=== PATIENT | female | born 2000 | race Caucasian/White ===

== ENCOUNTER 2021-12-03 14:28 | Outpatient (REF) | payer MEDICAID, SELFPAY | END 2021-12-03 14:29 | disposition home or self-care (01) | LOC: HO.LNP 14:28 | PROVIDERS: Visit Provider Obstetrics & Gynecology | DX: Z34.90 Encounter for supervision of normal pregnancy, unspecified, unspecified trimester (principal) | CPT/HCPCS: 36415; 76801; 76817; 84702; 87491; 87591; 99202 ==

== ENCOUNTER 2021-12-03 14:47 | Outpatient (REF) | payer MEDICAID, SELFPAY ==
--- NOTE | ~2021-12-03 | US_ITS ---
EXAMINATION: US OBSTETRICAL ULTRASOUND CLINICAL INFORMATION: Supervision of normal . COMPARISON: None. LMP: 10/31/2021. Gestational age by maternal dates is 5 weeks and 3 days. Estimated date of delivery by maternal dates is 08/07/2022. TECHNIQUE: Chain grayscale imaging of pelvis is performed. FINDINGS: There is a single intrauterine gestational sac with visible yolk sac. pole is not visualized. No heart rate seen. HR: Not seen. Gestational sac:0.85 cm (5 weeks 3 days +/- 4 days). MATERNAL ADNEXA: The right maternal ovary measures 3.5 x 2.3 x 2.6 cm. There is a corpus luteal cyst measuring 1.6 x 1.4 x 1.5 cm. The left maternal ovary measures 2.7 x 2.2 x 1.3 cm. There is a simple adnexal cyst measuring 0.9 x 0.6 x 0.5 cm. There is no significant maternal adnexal mass. No maternal pelvic ascites. US/US OB pelvic and transvaginal IMPRESSION: 1. Single intrauterine gestation and yolk sac are visualized. The gestational sac measurements correspond to ultrasound age of 5 weeks and 3 days. pole is not visualized. There is a corpus luteal cyst of the right ovary and a simple paraovarian cyst of the left adnexa.
[2021-12-03 16:39] LABS: HCG Quantitative 10431 mIU/mL
[2021-12-04 02:28] LABS: CT PCR NOT DETECTED (Not Detect.); NG PCR NOT DETECTED (Not Detect.)
== END 2021-12-03 14:48 | disposition home or self-care (01) ==
LOC: HO.US 14:47
PROVIDERS: Visit Provider Obstetrics & Gynecology
DX: Z34.91 Encounter for supervision of normal pregnancy, unspecified, first trimester (principal); Z3A.01 Less than 8 weeks gestation of pregnancy
CPT/HCPCS: 36415; 76801; 76817; 84702; 87491; 87591

== ENCOUNTER → 2021-12-04 10:24 | Outpatient (BNVA) | payer MEDICAID, SELFPAY | PROVIDERS: PCP Nurse Practitioner Family; Visit Provider Obstetrics & Gynecology | DX: Z34.91 Encounter for supervision of normal pregnancy, unspecified, first trimester (principal); Z3A.01 Less than 8 weeks gestation of pregnancy | CPT/HCPCS: 99212 ==

== ENCOUNTER 2024-02-28 15:08 | Outpatient (REF) | payer MEDICAID, SELFPAY ==
[2024-02-28 16:17] LABS: MANUAL DIFF FLAG NO
[2024-02-28 16:20] LABS: Basophils Percent Auto 0.5 % (0-2); Eosinophils Absolute Auto 0.1 X10*3/uL (0.0-0.4); Eosinophils Percent Auto 1.6 % (0-4); Hematocrit 38.2 % (37.0-47.0); Hemoglobin 13.3 g/dl (12.0-16.0); Imm Gran Abs Auto 0.03 X10*3/uL (0.00-0.03); Imm Gran Pct Auto 0.4 % (0.0-0.4); Lymphocytes Absolute Auto 1.9 X10*3/uL (1.2-4.9); Lymphocytes Percent Auto 22.9 % (20-40); Mean Corpuscular HGB Conc 34.8 g/dl (31.0-35.0); Mean Corpuscular Hemoglobin 30.1 pg (27.0-33.0); Mean Corpuscular Volume 86.4 fL (80.0-98.0); Mean Platelet Volume 10.1 fL (9.4-12.3); Monocytes Absolute Auto 0.5 X10*3/uL (0.1-1.2); Monocytes Percent Auto 6.4 % (2-11); Neutrophils Absolute Auto 5.6 x10*3/uL (2.0-8.3); Neutrophils Percent Auto 68.2 % (45-73); Platelet Count 326 X10*3/uL (160-400); Red Blood Count 4.42 X10*6/uL (4.20-5.50); Red Cell Distribution Width 12.3 % (11.0-16.0); White Blood Count 8.1 X10*3/uL (4.8-10.8)
[2024-02-28 16:40] LABS: Estimated Average Glucose 103 mg/dL; Hemoglobin A1C 115.8817 umol/L; Hemoglobin A1c % 5.2 % (<6.0); Total Hemoglobin (HGBA1C) 3521.1941 umol/L
[2024-02-28 17:10] LABS: Alanine Aminotransferase 30 U/L (0-31); Albumin Level 4.1 g/dL (3.5-5.0); Alkaline Phosphatase 76 U/L (39-117); Anion Gap 9 (12-20); Aspartate Amino Transferase 27 U/L (5-31); Bilirubin Total 0.3 mg/dL (0.0-1.0); Blood Urea Nitrogen 13 mg/dL (9-16); Calcium 9.2 mg/dL (8.4-10.2); Carbon Dioxide 25 mmol/L (22-29); Chloride 110 mmol/L (96-108); Estimated Glomerular Filt Rate > 60; Glucose Random 86 mg/dL (60-115); Sodium 140 mmol/L (135-145); Total Protein 7.9 g/dL (6.5-8.0)
[2024-02-28 17:22] LABS: TSH reflex Free T4 0.61 uIU/mL (0.32-4.0)
[2024-02-29 05:15] LABS: CT PCR DETECTED (Not Detect.); NG PCR NOT DETECTED (Not Detect.)
== END 2024-02-28 15:09 | disposition home or self-care (01) ==
LOC: HO.HHCL 15:08
PROVIDERS: Visit Provider Nurse Practitioner Family
DX: Z00.00 Encounter for general adult medical examination without abnormal findings (principal); N92.6 Irregular menstruation, unspecified
CPT/HCPCS: 36415; 80053; 83036; 84443; 85025; 87491; 87591

== ENCOUNTER 2024-06-28 01:45 | Emergency (ER) | payer MEDICAID, SELFPAY ==
[2024-06-28 01:48] VITALS: BP 133/64; PULSE 77; RESP 20; TEMP 36.9; O2SAT 99; BMI 31.3
--- NOTE | 2024-06-28 03:25 | ED_ITS ---
HPI - General Adult General Chief complaint: Eye Problems Stated complaint: pink eye Time Seen by Provider: 06/28/24 02:40 Source: patient Limitations: no limitations History of Present Illness ED Provider: Nona Palencia PA-C HPI narrative: 24-year-old female presents with left eye discharge x3 days. Patient states she has been waking in the morning with a crusted dry discharge. The eye itself is red, with the excessive tearing and burning sensation. No recent cough or cold symptoms no fever, no sick contacts with similar symptoms. The patient was not diabetic, she does not wear contact lenses. Related Data Previous Rx's ?Medication ?Instructions ?Recorded erythromycin 5 mg/gram (0.5 %) eye 0.5 inch ophthalmic-Left QID #3.5 06/28/24 ointment grams Allergies Allergy/AdvReac Type Severity Reaction Status Date / Time No Known Allergies Allergy Verified 06/28/24 01:49 Review of Systems Review of Systems: Yes all other systems are reviewed and are negative Constitutional: Constitutional: Denies fatigue and Denies fever(s) Eyes: Eyes: Reports eye discharge, Reports irritation, Reports itchy eyes and Reports eye pain ENT: Denies nasal congestion Respiratory: Respiratory: Denies cough Endocrine: Endocrine: Denies fatigue Allergic/Immunologic: Allergic/Immunologic: Reports itchy eyes PMFSH Past Medical History Attestation statement: The following information was validated with the patient. 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 Sexual orientation: Straight/Heterosexual Gender identity: Female Physical Exam ED Vital Signs: Vital Signs - 24 hr 06/28/24 01:48 Temperature 98.5 F Pulse Rate 77 Respiratory Rate 20 Blood Pressure 133/64 Pulse Oximetry 99 Oxygen Delivery Method Room Air BMI result Body Mass Index 31.3 Const Other: Alert Orientation/consciousness: patient oriented x3 Eyes Other: Left eye with a residual crusted discharge along lashes of lower lid, bulbar conjunctiva injected Resp Effort & Inspection: normal respiratory effort Cardio Other: Normal peripheral perfusion Skin Other: Warm dry no rash Neuro General: patient oriented x3, gait normal, no focal motor deficits and CN's II- XI intact bilaterally Psych Other: Cooperative Medical Decision Making Medical Decision Making MDM Narrative: 24-year-old female presents with left eye discharge x3 days. Patient states she has been waking in the morning with a crusted dry discharge. The eye itself is red, with the excessive tearing and burning sensation. No recent cough or cold symptoms no fever, no sick contacts with similar symptoms. The patient was not diabetic, she does not wear contact lenses. No chronic issues History: Per patient I have considered the following differential diagnoses: Corneal abrasion, corneal ulceration, conjunctivitis Plan: Patient has conjunctivitis, she has no risk factors for Pseudomonas, we will treat with the erythromycin. There was no trauma to the eye, I have no suspicion for ulceration or abrasion. Discharge Plan Discharge Clinical Impression: Acute conjunctivitis, left eye Patient Disposition: Home, Self-Care Instructions: Conjunctivitis (ED) Additional Instructions: You have conjunctivitis. See home care instructions. You can use [id number] artificial tears to help lubricate the eye in between your dosing of the erythromycin. Use the eye ointment as directed. For your allergies, you can use [id number] Zyrtec or Claritin, daily, throughout the allergy season. Follow up with your primary care provider as needed. Prescriptions: New erythromycin 5 mg/gram (0.5 %) ointment 0.5 inch ophthalmic-Left QID Qty: 3.5 0RF Stand Alone Forms: Work/School Release Print Language: Nepali
[2024-06-28] MEDS: Erythromycin Base 0.5% Oph Oin 1 GM TUBE 1 CM EYE-LEFT (03:54)
[2024-06-28 04:00] VITALS: BP 133/64; PULSE 77; RESP 20; TEMP 36.9; O2SAT 99
[2024-06-28 04:08] VITALS: BP 133/64; PULSE 77; RESP 20; TEMP 36.9; O2SAT 99
== END 2024-06-28 04:09 | disposition home or self-care (01) ==
PROVIDERS: Emergency Provider Emergency Medicine Emergency Medical Services
DX: H10.32 Unspecified acute conjunctivitis, left eye (principal)
CPT/HCPCS: 99283; 99284

== ENCOUNTER 2024-11-15 11:25 | Outpatient (REF) | payer OTHER, SELFPAY ==
--- OUTSIDE RECORDS SUMMARY | 2024-11-15 10:30 | XMS_ITS | Encounter Summary ---
Author Organization [employer] Address [address] [place] [address] [address] [place] [address] Care Team Providers Care Account Development Representative Name Role Phone Felicia Loaiza NP Primary Care Provider [phone] Reason for Visit * Reason Comments Follow-up Encounter Details Date Type Department Care Team (Latest Contact Info) Description 11/15/2024 10:30 AM EDT Office Visit [facility] [address] [place] [address] Feliica Loaiza NP [address] [place] [address] Prediabetes (Primary Dx); Dietary counseling; Exercise counseling; Oral contraceptive causing adverse effect in therapeutic use, initial encounter; Possible exposure to STI Social History Tobacco Use Types Packs/Day Years Used Date Smoking Tobacco: Some Days Cigarettes Passive Smoke Exposure: Current Smokeless Tobacco: Never Tobacco Cessation:Ready to Q uit: Not Asked; Counseling Given: Not Answered Alcohol Use Standard Drinks/Week Comments Never 0 (1 standard drink = 0.6 oz pur e alcohol) Depression Answer Date Recorded Patient Health Questionnaire-9 Score 0 11/15/2024 Patient Health Questionnaire-9 Score 0 11/15/2024 Last PHQ-9: Questionnaire Data Not on file 0 11/15/2024 Housing Stability Answer Date Recorded What is your housing situation today? I have nola coley 02/17/[address] you li ve. Do you have problems with any of the following? None of the above 02/17/2024 Food Insecurity Answer Date Recorded Within the past 12 months, y ou worried that your food would run out before you got money to buy more: Never True 02/17/2024 Within the past 12 months,th e food you bought just didn't last and you didn't have enough money to get more: Never True Transportation Answer Date Recorded In the past 12 months, has l ack of transportation kept you from medical appts, meetings, work or from getting things needed for daily living? No 02/17/2024 Utilities Answer Date Recorded In the past 12 months, has t he electric, gas, oil or water company threatened to shut off services in your home? No 02/17/2024 Depression Answer Date Recorded Patient Health Questionnaire-2 Score 0 11/15/2024 Internet Access Answer Date Recorded Internet Access Q1 Yes 02/17/2024 Internet Access Q2 Not on file 02/17/2024 Comments Unknown Sex and Gender Information Value Date Recorded Sex Assigned at Female 12/29/2021 10:36 AM EDT Legal Sex Female 10:36 AM EDT Gender Identity Female 12/29/2021 10:36 AM EDT Sexual Orientation Straight 12/29/2021 10 :36 AM EDT documented as of this encounter Last Filed Vital Signs Vital Sign Reading Time Taken Comments Blood Pressure 115/69 11/15/2024 10:35 AM EDT Pulse 58 11/15/2024 10:35 AM EDT Temperature 36.7 C (98.1 F) 11/15/2024 10:35 AM EDT Respiratory Rate 17 11/15/2024 10:35 AM EDT Oxygen Saturation 98% 11/15/2024 10:35 AM EDT Inhaled Oxygen Concentration - - Weight 98.6 kg (217 lb 6.4 oz) 11/15/2024 10:35 AM EDT Height 170.2 cm (5' 7 ) 11/15/2024 10:35 AM EDT Body Mass Index 34.05 11/15/2024 10:35 AM EDT documented in this encounter Functional Status * Over the past 2 weeks, how often have you been bothered by any of the following problems? Question Answer Date of Assessment Author Patient Health Questionnaire -2 Score 0 11/15/2024 10:44 AM EDT Karyn Menendez MA * Little interest or pleasure in doing things Answer Date of Assessment Author Not at all 11/15/2024 10:44 AM EDKaryn Purvis MA * Feeling down, depressed, or hopeless Answer Date of Assessment Author Not at all 11/15/2024 10:44 AM Karyn Ramos MA * Trouble falling or staying asleep, or sleeping too much Answer Date of Assessment Author Not at all 11/15/2024 10:44 AM Karyn Ramos MA * Feeling tired or having little energy Answer Date of Assessment Author Not at all 11/15/2024 10:44 AM EDKaryn Purvis MA * Poor appetite or overeating Answer Date of Assessment Author Not at all 11/15/2024 10:44 AM Karyn Ramos MA * Feeling bad about yourself - or that you are a failure or have let yourself or your family down Answer Date of Assessment Author Not at all 11/15/2024 10:44 AM Karyn Ramos MA * Trouble concentrating on things, such as reading the newspaper or watching television Answer Date of Assessment Author Not at all 11/15/2024 10:44 AM Karyn Ramos MA * Moving or speaking so slowly that other people could have noticed? Or the opposite - being so fidgety or restless that you have been moving around a lot more than usual. Answer Date of Assessment Author Not at all 11/15/2024 10:44 AM Karyn Ramos MA * Thoughts that you would be better off or hurting yourself in some way Answer Date of Assessment Author Not at all 11/15/2024 10:44 AM Karyn Ramos MA * Patient Health Questionnaire-9 Score Answer Date of Assessment Author 0 11/15/2024 10:44 AM Karyn Ramos MA documented as of this encounter Miscellaneous Notes * Assessment & Plan Note - Felicia Loaiza NP - 11/15/2024 10:30 AM EDTAssociated Problem(s): Dietary counseling * Assessment & Plan Note - Felicia Loaiza NP - 11/15/2024 10:30 AM EDTAssociated Problem(s): Exercise counseling * Assessment & Plan Note - Felicia Loaiza NP - 11/15/2024 10:30 AM EDTAssociated Problem(s): Prediabetes Orders: Comprehensive Metabolic Panel; Future Hemoglobin A1c; Future * Assessment & Plan Note - Felicia Loaiza NP - 11/15/2024 10:30 AM EDTAssociated Problem(s): Oral contraceptives causing adverse effect in therapeutic use documented in this encounter Plan of Treatment Scheduled Orders Name Type Priority Associated Diagnoses Orde r Schedule Comprehensive Metabolic Panel Lab Routine Prediabetes Expected: 11/15/2024 (Approximate), Expires: 11/15/2025 Hemoglobin A1c Lab Routine Prediabetes Expected: 11/15/2024 (Approximate), Expires: 11/15/2025 HIV-1/2 Antigen and Antibodies, Fourth Generation, with Reflexes Lab Routine Possible exposure to STI Expected: 11/15/2024 (Approximate), Expires: 11/15/2025 Hepatitis C Antibody with Reflex to HCV, RNA, Quantitative, Real-Time PCR Lab Routine Possible exposure to STI Expected: 11/15/2024, Expires: 11/15/2025 RPR (Monitor) with Reflex to Titer Lab Routine Possible exposure to STI Expected: 11/15/2024, Expires: 11/15/2025 Chlamydia/N. Gonorrhoeae, PCR, Urine Lab Routine Possible exposure to STI Ordered: 11/15/2024 documented as of this encounter Procedures Procedure Name Priority Date/Time Associated Diagnosis Comments POCT , URINE Routine 11/15/2024 11:27 AM EDT Oral contraceptive causing adverse effect in therapeutic use, initial encounter documented in this encounter Results * POCT Urine (11/15/2024 11:27 AM EDT) Preg Test, Ur Negative Negative, Indeterminate, None Detected, Invalid, Specimen unsatisfactory for evaluation, Weakly Positive, 2+ QC Media Lot # [id number] Lot# Expiration Date QC TEST Urine 11/15/2024 11:2 7 AM EDT Felicia Loaiza NP POINT OF CARE TEST ENTER/EDIT OR DERABLES Final Result documented in this encounter Visit Diagnoses Diagnosis Prediabetes- Primary Other abnormal glucose Dietary counseling Dietary surveillance and counseling Exercise counseling Oral contraceptive causing adverse effect in therapeutic use, initial encounter Possible exposure to STI documented in this encounter Additional Health Concerns Assessment Noted Time PHQ-9 Depression Total Score: 0 11/16/19 25 10:44 AM EDT documented as of this encounter Care Teams Account Development Representative Relationship Specialty Start Date End Date Felicia Loaiza NP [address] [place] [id number] PCP - General Family Medicine 04/05/23 documented as of this encounter
--- OUTSIDE RECORDS SUMMARY | 2024-11-15 14:49 | XMS_ITS | Clinical Summary ---
Author Organization [facility] Address [address] [place] [address] 7 [place] [address] Care Team Providers Care Television Newscast Director Name Role Phone Felicia Loaiza NP Primary Care Provider Allergies No known active allergies Medications olopatadine (Pataday) 0.2 % ophthalmic solutionIndication s:Allergic conjunctivitis of both eyes Administer 1 drop into affected eye(s) Once per day. 2.5 mL 2 4 Active cetirizine (ZyrTEC) 10 MG tablet TAKE 1 TABLET BY MOUTH EVERY DAY 90 tablet 4 Active fluticasone (Flonase) 50 MCG/ACT nasal sprayIndications:S easonal allergic rhinitis due to pollen INSTILL 1-2 SPRAYS INTO EACH NOSTRIL DAILY 16 g 2 5 Active desogestrel-ethiny l estradiol (Apri) 0.15-30 MG-MCG tablet Take 1 tablet by mouth Once per day. 28 tablet 2 5 026 Active Active Problems Problem Noted Date Diagnosed Date Prediabetes 11/15/2024 Assessment & Plan (11/15/2024 11:15 AM EDT): Orders: Comprehensive Metabolic Panel; Future Hemoglobin A1c; Future Oral contraceptives causing adverse effect in therapeutic use 11/15/2024 Assessment & Plan (11/15/2024 11:15 AM EDT): Cervical cancer screening 04/23/2024 Dietary counseling 02/29/2024 Assessment & Plan (11/15/2024 11:15 AM EDT): Assessment & Plan (02/29/2024 9:26 AM EST): Encouraged minimizing processed foods and increasing whole foods particularly vegetables Exercise counseling 02/29/2024 Assessment & Plan (11/15/2024 11:15 AM EDT): Assessment & Plan (02/29/2024 9:26 AM EST): Encouraged daily movement, working up to 30 minutes daily Healthcare maintenance 02/28/2024 Assessment & Plan (02/29/2024 9:26 AM EST): Metabolic labs ordered Follow up in 2 months for pap Urticaria 02/28/2024 Assessment & Plan (02/29/2024 9:25 AM EST): Trial zyrtec Seasonal allergic rhinitis due to pollen 024 Snoring 02/28/2024 Assessment & Plan (02/29/2024 9:24 AM EST): Trial flonase, if no improvement in symptoms referral to sleep meidcine Follow up in 2 months Migraine with aura 12/27/2022 12/27/2022 Vitamin D deficiency 12/27/2022 12/27/2022 Chronic low back pain 12/27/2022 12/27/2022 Irregular menstrual cycle 11/17/20222022 Overview (12/27/2022): Last Assessment & Plan: Patient reports occasional months where she gets her period 2-3 weeks after her previous menses Last menstrual period 10/21 Patient not currently tracking her cycles Patient not currently using hormonal contraception Plan for patient to keep a menstrual journal for cycle tracking Follow up in 3 months at annual [employer] exam Assessment & Plan (02/29/2024 9:25 AM EST): Pt declines ocps today, is tracking menses Tsh and cbc ordered today control counseling 12/22/2021 Status post therapeutic 12/22/2021 Resolved Problems Problem Noted Date Diagnosed Date Resolved Date Allergic conjunctivitis of both eyes 02/28/2024 06/08/2024 Assessment & Plan (02/29/2024 9:25 AM EST): Topical eye drops rx today Reduced visual acuity 12/27/2022 12/27/20222024 Encounters Date Type Department Care Team Description 11/15/2024 10:30 AM EDT Office Visit [facility] [address] [place] [phone] Felicia Loaiza, CARISSA Prediabetes (Primary Dx); Dietary counseling; Exercise counseling; Oral contraceptive causing adverse effect in therapeutic use, initial encounter; Possible exposure to STI 11/15/2024 Travel 11/09/2024 Travel 11/09/2024 Telephone [facility] [address] [place] [address] Felicia Loaiza, CARISSA Chart Prep 11/09/2024 Telephone [facility] [address] [place] [address] Felicia Loaiza, CARISSA Chart Prep 11/07/2024 Travel 11/07/2024 Telephone [facility] [address] [place] [phone] Felicia Loaiza NP Nurse Triage 11/02/2024 3:30 PM EDT Office Visit [facility] [address] [place] [address] Tarka, Rin, OD Retinal hemorrhage of right eye (Primary Dx); Dry eyes 11/02/2024 Travel 09/28/2024 1:00 PM EDT Office Visit [facility] [address] [place] [address] Mago Rivera DO Nausea and vomiting, unspecified vomiting type (Primary Dx); Insulin resistance 09/28/2024 Travel from Last 3 Months Immunizations Immunization Administration Dates Next Due Influenza injectable quadriv alent preservative free 05/05/2019 Meningococcal MCV4P [id number]-135 05/05/2019 Moderna Covid-19 Vaccine 12+ 09/09/2021,07/30/19 21,06/30/2020 Tdap 05/05/2019 Social History Tobacco Use Types Packs/Day Years [...] Orientation Straight 12/29/2021 10 :36 AM EDT Last Filed Vital Signs Vital Sign Reading [...] Mass Index 34.05 11/15/2024 10:35 AM EDT Plan of Treatment Health Maintenance Due Date Last Done Comments HIV Screening 2001 Lipid Panel 2001 Family Planning (PISQ) 2016 HPV Vaccines (1 - 3-dose series) 2016 Meningococcal B Vaccine (1 of 2 - Standard) 2017 Hepatitis B Vaccines (1 of 3 - 19+ 3-dose series) 2020 Pneumococcal Vaccine: Pediatrics (0 to 5 Years) and At-Risk Patients (6 to 49) Years (1 of 2 - PCV) 2020 Pap Smear 2022 COVID-19 Vaccine ( season) 2024 09/09/2021, 07/29/2020, 06/30/2020 Influenza Vaccine (#1) 2024 05/05/2019 SDOH Screening 02/16/2025 02/17/2024 Diabetes: Hemoglobin A1C 02/27/202502/27/ 024, 04/15/2021, 05/05/2019 Chlamydia and Gonorrhea Screening 05/11/2025 05/11/2024, 02/28/2024, 12/05/2021, Additional history exists Disability Screening 11/09/2025 11/09/2024 Alcohol/Substance Use Screening 11/15/2025 11/15/2024 Depression Screening 11/15/2025 11/15/2024, 11/16/19 25 Tobacco Screening 11/15/2025 11/15/2024 DTaP/Tdap/Td Vaccines (2 - Td or Tdap) 05/04/2029 05/05/2019 Zoster Vaccines (1 of 2) 2051 RSV Patients and Patients Aged 60 years or older (1 - 1-dose 75+ series) 2076 Meningococcal Vaccine Completed 05/05/2019 Hepatitis C Screening Completed 04/15/2021 HIB Vaccines Aged Out No longer eligi ble based on patient's age to complete this topic Hepatitis A Vaccines Aged Out No long er eligible based on patient's age to complete this topic IPV Vaccines Aged Out No longer eligi ble based on patient's age to complete this topic RSV under 20 months Aged Out No longe r eligible based on patient's age to complete this topic Rotavirus Vaccines Aged Out No longer eligible based on patient's age to complete this topic Procedures Procedure Name Priority Date/Time Associated Diagnosis Comments POCT , URINE Routine 11/15/2024 11:27 AM EDT Oral contraceptive causing adverse effect in therapeutic use, initial encounter CHLAMYDIA/N. GONORRHOEAE RNA, TMA, UROGENITAL Routine 02/28/2024 3:21 PM EST Irregular menstrual cycle HEMOGLOBIN A1C Routine 02/28/2024 3:10 PM EST Healthcare maintenance ZZZ HISTORICAL HEPATITIS C AB W/REFL TO HCV RNA, QN, PCR Routine 04/15/2021 11:32 AM EST from Last 3 Months or Most Recently Relevant to Health Maintenance Results * POCT Urine (11/15/2024 11:27 AM EDT) Preg Test, Ur Negative Negative, Indeterminate, None Detected, Invalid, Specimen unsatisfactory for evaluation, Weakly Positive, 2+ QC Media Lot # [id number] Lot# Expiration Date QC TEST Urine 11/15/2024 11:2 7 AM EDT Felicia Loaiza NP POINT OF CARE TEST ENTER/EDIT OR DERABLES Final Result * (ABNORMAL) Chlamydia/N. Gonorrhoeae RNA, TMA, Urogenitial (02/28/2024 3:21 PM EST) CT PCR DETECTED(A) Not Detect. [facility] Comment:Detected results may be observed after successful antibiotictreatment due to target nucleic acids from residualnon-viable chlamydia. As with many diagnostic tests, resultsfrom the Xpert CT/NG assay should be interpreted inconjunction with other laboratory and clinical dataavailable to the clinician.Xpert CT/NG performance has not been evaluated in patientsless than 14 years of age. The assay should not be used forthe evaluationof suspected sexual abuse or for other medico- legalindications. Additional testing is recommended inany circumstance when false positive or false negativeresults could lead to adverse medical, social orpsychological consequences.These results must be reported by the ordering clinician orclinical facility to the [facility] required by state law. NG PCR NOT DETECTED Not Detect. [facility] Comment:A not detected test result does not exclude the possibilityof infection because test results can be affected byimproper specimen collection, concurrent antibiotic therapy,or the number of organisms in the specimen which may bebelow the sensitivity of the test. As with many diagnostictests, results from the Xpert CT/NG assay should beinterpreted in conjunction with other laboratory andclinical data available to the clinician.Xpert CT/NG performance has not been evaluated in patientsless than 14 years of age. The assay should not be used forthe evaluationof suspected sexual abuse or for other medico-legalindications. Additional testing is recommended in anycircumstance when false positive or false negative resultscould lead to adverse medical, social or psychologicalconsequences. Urine (Urine, Random) 02/28/2024 3:21 PM EST 02/28/2024 5:42 PM EST Narrative [facility] - 02/29/2024 5:15 AM EST Urine us Felicia Loaiza NP LAB MICROBIOLOGY - GENERAL ORDER SEGUN Final Result [facility] [address] [place] [address] [phone] * Hemoglobin A1c (02/28/2024 3:10 PM EST) Hemoglobin A1c 5.2 <6.0 % [facility] Comment:Hemoglobin A1C Refer ence Range Adults: 4.8 - 6.0 % Non diabetic: < 6.0 % Goal: < 7.0 %Additional Action Suggested: > 8.0 %Note: Hemoglobin A1c results are invalid for patients with abnormal amounts of HbF. Blood transfusions may impact the HbA1c concentration in the patient sample. Estimated Average Glucose 103 mg/dL [facility] Comment:eAG = Estimated ave rage glucose which is %A1C expressed asaverage glucose, using the formula of the V4O-YzyzvsvClqifrm Glucose study (ADAG), Diabetes Care, Vol.31,#8,Sep. 2007 Blood Venous blood specimen / Unknown 02/28/2024 3:10 PM EST 02/28/2024 4:13 PM EST us Felicia Loaiza BLADE CHANGER LAB BLOOD ORDERABLES Final Resul t Performing Organization Address [facility] Co de Phone Number [facility] [address] [place] [address] [phone] * HEPATITIS C AB W/REFL TO HCV RNA, QN, PCR (04/15/2021 11:32 AM EST) HEPATITIS C ANTIBODY NON-REACT [facility] NON-REACT [facility] INDEX 0.02 <1.00 [facility] Comment: HCV antibody was non-reactive. There is no laboratory evidence of HCV infection. In most cases, no further action is required. However, if recent HCV exposure is suspected, a test for HCV RNA (test code 33173) is suggested. For additional information please refer to http://education.[employer].Perk/faq/IJJ07x8 (This link is being provided for informational/ educational purposes only.) 04/15/2021 11:3 2 AM EST us Rose MOYERP HISTORICAL/NON ORDERABLE LABS Final Result Performing Organization Address City/[facility]/ZIP Co de Phone Number [facility] [address] [place] [address], from Last 3 Months or Most Recently Relevant to Health Maintenance Insurance HSN PARTIAL Care Teams Television Newscast Director Relationship Specialty Start Date End Date Felicia Loaiza NP [address] [place] [phone] PCP - General Family Medicine 04/05/23
--- OUTSIDE RECORDS SUMMARY | 2024-11-15 14:49 | XMS_ITS | Clinical Summary ---
Author Organization [facility] Address [address] [place] [phone] Phone Care Team Providers Care Med Admin Name Role Phone [facility] Primary Care Provider Unavailable Allergies No known active allergies Medications fluticasone propionate (FLONASE) 50 mcg/actuation nasal spray 1-2 sprays. 02/28/2024 Active Active Problems Problem Noted Date Diagnosed Date Irregular menstrual cycle 11/17/2022 Assessment & Plan (11/17/2022 12:58 PM EDT): Patient reports occasional months where she gets her period 2-3 weeks after her previous menses Last menstrual period 10/21 Patient not currently tracking her cycles Patient not currently using hormonal contraception Plan for patient to keep a menstrual journal for cycle tracking Follow up in 3 months at annual [employer] exam Status post therapeutic 12/22/2021 Assessment & Plan (12/22/2021 10:14 PM EDT): Gricel presents to follow up after TAB. She took medications as prescribed and had a period of heavy bleeding and cramping followed by 2 weeks of moderate bleeding which has just tapered down and she feels like bleeding has finally resolved. Gricel is doing ok. O: US today shows no GS or retained products in uterus A: S/P Completed TAB P: Discussed options for contraception. After discussing R/B of different options - Gricel would like to try the Depo shot. She understands there may be a possibility of weight gain - we reviewed side effect profiles of other options, but ultimately she would like to choose the Depo shot. Recommended that she should wait 1 week after Depo initiation to be sexually active without a back up method Recommended follow up in 3 months for repeat Depo shot and Annual Fine Unha[employer]r control counseling 12/22/2021 Assessment & Plan (12/22/2021 10:14 PM EDT): Discussed options and Gricel opted for Depo Shot Family History Medical History Relation Comments No Known Problems Father Diabetes Mother Relation Status Comments Brother Alive Father Alive Maternal Grandfather Alive Maternal Grandmother Mother Alive Paternal Grandfather Paternal Grandmother Alive Social History Tobacco Use Types Packs/Day Years Used Date Smoking Tobacco: Former Cigarettes Smokeless Tobacco: Never Tobacco Cessation:Counseling Given: Not Answered Alcohol Use Standard Drinks/Week Comments Not Currently 0 (1 standard drink = 0.6 oz pur e alcohol) Education Answer Date Recorded Are you interested in more education? Not on maria e 06/27/2022 Are you concerned about learning? Not on file 06/27/2022 No 06/27/2022 No 06/27/2022 Digital Access Answer Date Recorded No 07/28/2022 No 07/28/2022 Reliable internet access at home? Not on file 07/28/2022 Device with a working camera? Not on file Intimate Partner Violence Answer Date R ecorded Are you denied basic needs s uch as food, clothing, or medical care? No 07/06/2023 In the past 12 months have y ou been in a relationship with a person who hurts, threatens, or tries to control you? No 07/06/2023 Are you denied basic needs s uch as food, clothing, or medical care? No 07/06/2023 In the past 12 months have y ou been in a relationship with a person who hurts, threatens, or tries to control you? No 07/06/2023 Comments No Sex and Gender Information Value Date Recorded Sex Assigned at Female 11/27/2021 10:27 AM EDT Legal Sex Female 12:27 PM EDT Gender Identity Female 11/27/2021 10:27 AM EDT Sexual Orientation Straight 07/07/2023 1: 57 AM EDT Last Filed Vital Signs Vital Sign Reading Time Taken Comments Blood Pressure 126/82 06/01/2024 11:29 AM EDT Pulse 80 07/07/2023 3:01 AM EDT Temperature 36.6 C (97.9 F) 07/07/2023 3:01 AM EDT Respiratory Rate 18 07/07/2023 3:01 AM EDT Oxygen Saturation 99% 07/07/2023 3:01 AM EDT Inhaled Oxygen Concentration - - Weight 95.7 kg (211 lb) 05/11/2024 3:37 PM EDT Height 167.6 cm (5' 6 ) 12/18/2022 12:55 PM EDT Body Mass Index 34.06 12/18/2022 12:55 PM EDT Plan of Treatment Health Maintenance Due Date Last Done Comments DEPRESSION SCREENING 2013 SMOKING Hx and SMOKELESS TOBACCO SCREENING 2014 HPV VACCINES (1 - 3-dose series) 2016 MENINGOCOCCAL VACCINES (B) ( 1 of 2 - Standard) 2017 HEPATITIS C SCREENING 2019 HIV ONE-TIME SCREENING (18-6 5 YEARS) 2019 PAP SMEAR 2022 INFLUENZA VACCINE (#1) 2024 05/05/2019 COVID-19 VACCINE ( - 2024-2 6 season) 2024 09/09/2021, 07/29/2020, 06/30/2020 CHLAMYDIA SCREENING 05/11/2025 05/11/2024, 12/05/2021 Adult Td,Tdap Booster 05/04/2029 05/05/2019 MENINGOCOCCAL VACCINES (ACWY) Completed 05/05/2019 HEPATITIS A VACCINES Aged Out No long er eligible based on patient's age to complete this topic HIB VACCINES Aged Out No longer eligi ble based on patient's age to complete this topic PNEUMOCOCCAL VACCINES (0-49 years) Aged Out No longer eligible b ased on patient's age to complete this topic Medical Devices Not on file Procedures Procedure Name Priority Date/Time Associated Diagnosis Comments CHLAMYDIA TRACHOMATIS AND NEISSERIA GONORRHOEAE NUCLEIC ACID DETECTION Routine 05/11/2024 4:10 PM EDT Screen for sexually transmitted diseases from Last 3 Months or Most Recently Relevant to Health Maintenance Results * Chlamydia trachomatis and Neisseria gonorrhoeae Nucleic Acid Amplification (05/11/2024 4:10 PM EDT) CHLAMYDIA TRACHOMATIS Not Detected Not Detected [facility] NEISERIA GONORRHOEAE Not Detected Not Detected [facility] SPECIMEN TYPE URINE [facility] Urine (Urine) 05/11/2024 4:1 0 PM EDT 05/11/2024 8:17 PM EDT Yue Horowitz CNM NON CULTURE MICROBIOLOGY Final R esult [facility] [address] [place] [address] from Last 3 Months or Most Recently Relevant to Health Maintenance Insurance [employer] PARTIAL Member Subscriber Plan / Payer (Ef fective 2024-Present) Name:Gricel Johns Relation to Subscriber:Self Name:Gricel Johns Payer ID:Not on file Group ID:Not on file Type:Medicaid Address: [address] [facility]CP [facility] Address: [facility] [address] [place] [address] [employer]AF[employer] NET PARTIAL Member Subscriber Plan / Payer (Ef fective 2024-Present) Name:Gricel Johns Relation to Subscriber:Self Name:Gricel Johns Payer ID:Not on file Group ID:Not on file Type:Medicaid [address] PCP [facility] [employer] SAF[employer] NET PARTIAL ENSE NON NSPG PCP [facility] HEALTH SAFETY NET PARTIAL WELLSENSE NON NSPG PCP S[facility] NET PARTIAL WELLSENSE NON NSPG PCP [facility] HEALTH SAFETY NET PARTIAL NON NSPG PCP [facility] Care Teams Med Admin Relationship Specialty Start Date End Date Devi Jurado MD PCP - General 11/24/21 Additional Source Comments The information contained in this document represents components of the legal health record. It is not the complete legal health record.[facility]
--- OUTSIDE RECORDS SUMMARY | 2024-11-15 14:49 | XMS_ITS | Encounter Summary ---
Author Organization [facility] Address [address] [facility] [address] [place] [address] Care Team Providers Care Track Laborer Name Role Phone Felicia Loaiza NP Primary Care Provider [phone] Encounter Details Date Type Department Care Team (Latest Contact Info) Description 11/15/2024 Travel Social History Tobacco Use Types Packs/Day Years Used Date Smoking Tobacco: Some Days Cigarettes Passive Smoke Exposure: Current Smokeless Tobacco: Never Alcohol Use Standard Drinks/Week Comments Never 0 [...] AM EDT documented as of this encounter Functional Status * Over the past 2 weeks, how often have you been bothered by any of the following problems? Question Answer Date of Assessment Author Patient Health Questionnaire -2 Score 0 11/15/2024 10:44 AM Karyn Ramos MA * Little interest or pleasure in doing things Answer Date of Assessment Author Not at all 11/15/2024 10:44 AM Karyn Ramos MA * Feeling down, depressed, or hopeless [...] 11/15/2024 10:44 AM Karyn Ramos MA * Poor appetite or overeating Answer [...] Author Not at all 11/15/2024 10:44 AM EDT Karyn Menendez MA * Thoughts that you would be better off or hurting yourself in some way Answer Date of Assessment Author Not at all 11/15/2024 10:44 AM EDT Karyn Menendez MA * Patient Health Questionnaire-9 Score Answer Date of Assessment Author 0 11/15/2024 10:44 AM EDT Karyn Menendez MA documented as of this encounter Plan of Treatment Not on file documented as of this encounter Visit Diagnoses Not on filedocumented in this encounter Additional Health Concerns Assessment Noted Time PHQ-9 Depression Total Score: 0 11/16/19 25 10:44 AM EDT documented as of this encounter Care Teams Track Laborer Relationship Specialty Start Date End Date Felicia Loaiza NP [address] [place] [address] PCP - General Family Medicine 04/05/23 documented as of this encounter
[2024-11-15 16:24] LABS: Hematocrit 36.2 % (37.0-47.0); Hemoglobin 12.7 g/dl (12.0-16.0); Mean Corpuscular HGB Conc 35.1 g/dl (31.0-35.0); Mean Corpuscular Hemoglobin 30.0 pg (27.0-33.0); Mean Corpuscular Volume 85.6 fL (80.0-98.0); NRBC Abs Auto 0.000 X10*3/uL (0.0-0.012); NRBC Pct Auto 0.0 /100WBC (0.0-0.2); Platelet Count 302 X10*3/uL (160-400); Red Blood Count 4.23 X10*6/uL (4.20-5.50); White Blood Count 6.8 X10*3/uL (4.8-10.8)
[2024-11-15 16:37] LABS: Alanine Aminotransferase 16 U/L (0-31); Albumin Level 4.2 g/dL (3.5-5.0); Alkaline Phosphatase 64 U/L (39-117); Anion Gap 11 (12-20); Aspartate Amino Transferase 26 U/L (5-31); Blood Urea Nitrogen 11 mg/dL (9-16); Calcium 9.0 mg/dL (8.4-10.2); Carbon Dioxide 25 mmol/L (22-29); Chloride 106 mmol/L (96-108); Cholesterol 135 mg/dL (<200); Estimated Glomerular Filt Rate > 60; HDL Cholesterol 41 mg/dL (>40); Potassium 3.7 mmol/L (3.3-5.1); Sodium 138 mmol/L (135-145); Total Protein 7.4 g/dL (6.5-8.0); Triglycerides 91 mg/dL (<150)
[2024-11-15 16:39] LABS: Hemoglobin A1C 114.8319 umol/L; Total Hemoglobin (HGBA1C) 3318.3094 umol/L
[2024-11-15 16:39] LABS: Hemoglobin A1C 113.6308 umol/L; Total Hemoglobin (HGBA1C) 3280.5615 umol/L
[2024-11-15 16:51] LABS: Free T4 (Free Thyroxine) 1.13 ng/dL (0.71-1.85)
[2024-11-15 16:53] LABS: Thyroid Stimulating Hormone 0.94 uIU/mL (0.32-4.0)
[2024-11-16 05:56] LABS: HIV Num 1 0.04 S/CO (0.00-0.99); ~HepC Num1 0.11 S/CO (0.00-0.79); ~Hepatitis C Antibody Nonreactive (Nonreactive)
[2024-11-16 10:06] LABS: CT PCR Urine NOT DETECTED (Not Detect.); NG PCR Urine NOT DETECTED (Not Detect.)
== END 2024-11-15 11:26 | disposition home or self-care (01) ==
LOC: HO.HHCL 11:25
PROVIDERS: PCP Nurse Practitioner Family; Referring Provider Family Medicine; Visit Provider Nurse Practitioner Family
DX: Z11.59 Encounter for screening for other viral diseases (principal); Z20.2 Contact with and (suspected) exposure to infections with a predominantly sexual mode of transmission; E88.819 Insulin resistance, unspecified
CPT/HCPCS: 36415; 80053; 80061; 82248; 82306; 83036; 83525; 84439; 84443; 85027; 86592; 86803; 87389; 87491; 87591